=== PATIENT | female | born 1975 | race Native Hawaiian/Other Pacific Islander ===

== ENCOUNTER 2022-08-01 12:02 | Emergency (ER) | payer MEDICAID ==
[~2022-08-01] VITALS: Ht 147.3 cm; Wt 84.8 kg
[2022-08-01 12:22] VITALS: BP 93/47
--- NOTE | 2022-08-01 12:35 | NUR ---
Pt ambulated to bed 09 with steady/even gait.
[2022-08-01] MEDS ORDERED: KETOROLAC 30 MG/ML VIAL IM ONE (12:45)
[2022-08-01] MEDS ORDERED: DICYCLOMINE HCL LIQUID 20 MG, ALUMINUM HYD/MAG/SIMETHICONE 30 ML, LIDOCAINE VISCOUS 2% ... PO ONE ×3 (12:45)
--- NOTE | 2022-08-01 12:45 | NUR ---
Dr. Bennett evaluating pt at bedside
--- NOTE | 2022-08-01 13:00 | NUR ---
46 y/o F BIB self from home c/o abdominal pain x 3 days. Patient states 10/10, pressure/constant, non-radiating pain with bloating and "fever." Pt states symptoms worsening after meals. Denies nausea, vomiting, diarrhea, constipation. Pt also states dysuria yesterday. Tylenol yesterday without relief to symptoms. Bed locked in lowest position, side rails x 1. PMH: HLD, fatty liver dx Meds: protonix, pepcid NKDa
[2022-08-01] MEDS ORDERED: ALUMINUM HYD/MAG/SIMETHICONE 30 ML UDC ONE (13:02)
[2022-08-01] MEDS ORDERED: DICYCLOMINE HCL LIQUID 10 MG/5 ML UDC ONE (13:17)
[2022-08-01 13:36] LABS: BASOPHILS # (AUTO) 0.1 K/uL (0.00-0.22); BASOPHILS % (AUTO) 0.8 % (0.0-2.0); EOSINOPHILS # (AUTO) 0.1 K/uL (0-0.4); EOSINOPHILS % (AUTO) 0.6 % (0.0-4.0); HEMATOCRIT 37.6 % (36-48); HEMOGLOBIN 12.6 g/dL (12.0-16.0); LYMPHOCYTES # (AUTO) 1.6 K/uL (2.5-16.5); LYMPHOCYTES % (AUTO) 11.8 % (20.5-51.1); MEAN CORPUSCULAR HEMOGLOBIN 30 pg (27-31); MEAN CORPUSCULAR HGB CONC 34 g/dL (33-37); MEAN CORPUSCULAR VOLUME 88.1 fL (80-94); MONOCYTES # (AUTO) 0.8 K/uL (0.8-1.0); MONOCYTES % (AUTO) 6.3 % (1.7-9.3); NEUTROPHILS # (AUTO) 10.8 K/uL (1.8-7.7); NEUTROPHILS % (AUTO) 80.5 % (42.2-75.2); PLATELET COUNT (AUTO) 331 K/uL (140-450); RED BLOOD CELL COUNT(AUTO) 4.27 MIL/uL (4.20-5.40); RED CELL DISTRIBUTION WIDTH 13.4 % (11.6-13.7); WHITE BLOOD COUNT (AUTO) 13.4 K/uL (4.8-10.8)
[2022-08-01 14:04] LABS: ALBUMIN 3.7 g/dL (3.4-5.0); ANION GAP 13.8 (8-16); CARBON DIOXIDE 25.2 mmol/L (21-32); CREATININE 0.6 mg/dL (0.6-1.3); TOTAL BILIRUBIN 0.7 mg/dL (0.0-1.0)
--- NOTE | 2022-08-01 14:06 | NUR ---
Patient to CT by wheelchair.
--- NOTE | 2022-08-01 14:25 | NUR ---
Pt returned from CT.
[2022-08-01 14:49] VITALS: BP 107/60
[2022-08-01] MEDS ORDERED: ONDA-188 PO (15:04)
[2022-08-01] MEDS ORDERED: ACET-10509 PO (15:04)
[2022-08-01] MEDS ORDERED: AMOX1TAB8 PO (15:04)
[2022-08-01] MEDS ORDERED: AMOXIL/CLAVULANATE 875/125 MG 1 TAB PO ONE (15:05)
--- NOTE | 2022-08-01 15:35 | NUR ---
Patient discharged with v/s stable. Written and verbal after care instructions given and explained. Patient alert, oriented and verbalized understanding of instructions. Ambulatory with steady gait. All questions addressed prior to discharge. ID band removed. Patient advised to follow up with PMD. Rx of Tylenol Extra Strength, Zofran ODT, Amox/Potassium Clav given. Patient educated on indication of medication including possible reaction and side effects. Opportunity to ask questions provided and answered. Copy of work note, CT results, blood work handed to pt.
== END 2022-08-01 15:35 | disposition home or self-care (01) ==
LOC: MED 12:02
DX: K57.92 Diverticulitis of intestine, part unspecified, without perforation or abscess without bleeding (principal)
CPT/HCPCS: 36415; 74176; 80053; 81002; 81025; 83690; 85025; 96372; 99284; J1885

== ENCOUNTER 2023-02-20 10:34 | Emergency (ER) | payer MEDICAID ==
[~2023-02-20] VITALS: Ht 157.5 cm; Wt 82.6 kg
[~2023-02-20 10:34] MED LIST: ACET-10509 PO; AMOX1TAB8 PO; ONDA-188 PO
[2023-02-20 10:54] VITALS: BP 137/87
--- NOTE | 2023-02-20 11:20 | NUR ---
PT EVALUATED BY ERPA SORIANO
--- NOTE | 2023-02-20 11:29 | NUR ---
PT WENT TO XR
[2023-02-20 12:34] VITALS: BP 137/87
--- NOTE | 2023-02-20 12:35 | NUR ---
Patient discharged with v/s stable. Written and verbal after care instructions given and explained. Patient verbalized understanding. Ambulatory with steady gait. All questions addressed prior to discharge. Advised to follow up with PMD.
== END 2023-02-20 12:53 | disposition home or self-care (01) ==
LOC: MED 10:34
DX: M79.671 Pain in right foot (principal); Z79.899 Other long term (current) drug therapy
CPT/HCPCS: 73630; 99283